=== PATIENT | female | born 1985 | race Caucasian/White ===

== ENCOUNTER 2018-04-17 08:19 | Outpatient (CLI) | payer BC, OTHER ==
--- NOTE | 2018-04-17 11:50 | MRI ---
BRAIN MRI WITH AND WITHOUT CONTRAST: Date: 04/17/18 COMPARISON: 07/04/16. HISTORY: Follow-up examination. Multiple sclerosis. TECHNIQUE: Brain MRI is performed with and without intravenous Gadolinium administration. Multisequential, multi planar imaging is performed. FINDINGS: No parenchymal hemorrhage. No extra-axial hematoma. No parenchymal mass effect or midline shift. Basi lar cisterns are patent. Cortical banks-white matter differentiation is preserved. Ventricles and sulci are patent and symmetric. Central arterial flow-voids are maintained. Absent restricted diffusion. Calvarium has a normal T1 marrow signal intensity. Midline brain parenchymal structures are unremarka ble. Adequate aeration of the sinuses and mastoid air cells. Redemonstration of multiple periventricular white matter hyperintensities on the axial FLAIR sequence . Stable 7.0 mm FLAIR hyperintensity in the right centrum semiovale. Stable white matter hyperintensi ties adjacent to the occipital horn of both lateral ventricles. Additional minimal scattered T2 and F LAIR hyperintense lesions in the periventricular distribution are again noted. No evidence of enhance ment or restricted diffusion to suggest active demyelination. There is a new T2 and FLAIR hyperintensity adjacent to the frontal horn of the left lateral ventricle measuring 0.6 x 0.3 cm. There does appear to be a new lesion in the left coronal radiata measuring 0 .3 cm. These lesions does not have any associated restricted diffusion. No associated enhancement. IMPRESSION: Abnormal white matter hyperintensities compatible with patient's history of multiple sclerosis. There are two new FLAIR hyperintense lesions as described above. Both of these lesions do not exhibit enha ncement or restricted diffusion to suggest active demyelination. POS: [facility]
== END 2018-04-17 08:20 | disposition home or self-care (01) ==
LOC: SCSMRI 08:19
PROVIDERS: ATTEND Psychiatry & Neurology Neurology
DX: G35 Multiple sclerosis (principal); G93.89 Other specified disorders of brain; R93.8 Abnormal findings on diagnostic imaging of other specified body structures
CPT/HCPCS: 70553